=== PATIENT | female | born 1950 | race Caucasian/White ===

== ENCOUNTER 2023-10-05 10:45 | Emergency (ER) | payer MEDICARE, OTHER ==
[~2023-10-05] VITALS: Ht 162.6 cm; Wt 86.3 kg
[2023-10-05] MEDS: HYDROcodone-ACET 10/325MG TAB PO ONE (11:03)
[2023-10-05 11:41] VITALS: BP 196/97; PULSE 78; RESP 18; TEMP 98.1; O2SAT 97
[2023-10-05] MEDS ORDERED: HYDR-4798 PO (12:13)
== END 2023-10-05 12:15 | disposition home or self-care (01) ==
LOC: EDBD 10:45 → ER 10:45
DX: S42.255A Nondisplaced fracture of greater tuberosity of left humerus, initial encounter for closed fracture (principal); I10 Essential (primary) hypertension; F17.210 Nicotine dependence, cigarettes, uncomplicated; W17.89XA Other fall from one level to another, initial encounter; Y93.89 Activity, other specified; Y92.89 Other specified places as the place of occurrence of the external cause; Y99.8 Other external cause status
CPT/HCPCS: 29105; 73060